=== PATIENT | female | born 1980 ===

== ENCOUNTER 2016-06-27 15:38 | Emergency (ER) | payer OTHER ==
[2016-06-27 15:49] VITALS: BP 105/71; PULSE 91; RESP 18; TEMP 98.1; O2SAT 100
[2016-06-27] MEDS ORDERED: Albuterol-Ipratrop 3 mg / 0.5 (3 ml) UD INH STA ×3 (15:52→18:00)
--- NOTE | 2016-06-27 15:58 | ED PDOC ---
HPI: CCC, URI, Sore Throat Time Seen by Provider: 06/27/16 16:00 Chief Complaint (Nursing): Cough, Cold, Congestion Chief Complaint (Provider): cough, cold, congestion History Per: Patient History/Exam Limitations: no limitations Have you had recent travel within the past 21 days to any of the following countries: [place], [place], [place] or [place]?: No Onset/Duration Of Symptoms: Days (x 2 weeks) Current Symptoms Are (Timing): Still Present Location Of Pain: Throat Associated Symptoms: Sore Throat, Cough, Nasal Congestion Additional Complaint(s): Ingris Dick is a 35 year old female, with no previous medical history, who presents to the ED with complaints of a cough accompanied by nasal congestion, sore throat and shortness of breath ongoing for the past 2 weeks. Patient noted she was seen at her local clinic where she was given singulair and antibiotics which improved the symptoms for a while but returned. Patient reports symptoms are consistent with seasonal allergies. PMD: none provided Past Medical History Reviewed: Historical Data, Nursing Documentation, Vital Signs Vital Signs: Last Vital Signs Temp 98.1 F 06/27/16 15:45 Pulse 91 H 06/27/16 15:45 Resp 18 06/27/16 15:45 BP 105/71 06/27/16 15:45 Pulse Ox 100 06/27/16 18:00 - Medical History PMH: No Chronic Diseases - Surgical History Surgical History: No Surg Hx - Family History Family History: States: Unknown Family Hx - Home Medications Home Medications: Ambulatory Orders Medication Instructions Recorded Multivit/Folic Acid/I 1 tab PO DAILY 06/16/15 [] Ibuprofen [Motrin Tab] 600 mg PO Q4H PRN #0 tab 06/19/15 Oxycodone HCl/Acetaminophen 1 each PO TID PRN #0 tablet 06/19/15 [Percocet 5-325 mg Tablet] Sennosides A and B [Senokot Tab] 17.2 mg PO HS #0 tab 06/19/15 Cephalexin [Keflex] 500 mg PO QID #28 capsule 02/23/16 Albuterol HFA [Ventolin HFA 90 2 puff IH [id number] PRN #1 inhaler 06/27/16 mcg/actuation (8 g)] Azithromycin [Zithromax] 1 tab PO DAILY #6 tab 06/27/16 Fluticasone Propionate [Flonase] 2 spr ADALBERTO DAILY #1 bottle 06/27/16 predniSONE [predniSONE Tab] 3 tab PO DAILY #12 tab 06/27/16 - Allergies Allergies/Adverse Reactions: Allergies Allergy/AdvReac Type Severity Reaction Status Date / Time No Known Allergies Allergy Verified 06/27/16 15:44 Review of Systems ROS Statement: Except As Marked, All Systems Reviewed And Found Negative ENT: Positive for: Nose Congestion, Throat Pain Respiratory: Positive for: Cough, Shortness of Breath Physical Exam - Reviewed Nursing Documentation Reviewed: Yes Vital Signs Reviewed: Yes - Physical Exam Appears: Positive for: Well, Non-toxic, No Acute Distress Skin: Positive for: Normal Color, Warm, Dry ENT: Positive for: TM Is/Are (within normal limits), Other (2 sections of erythema on uvula noted). Negative for: Pharyngeal Erythema, Tonsillar Exudate Cardiovascular/Chest: Positive for: Regular Rate, Rhythm Respiratory: Positive for: Wheezing (upper left expiratory). Negative for: Decreased Breath Sounds, Accessory Muscle Use, Respiratory Distress Neurologic/Psych: Positive for: Alert, Oriented - ECG O2 Sat by Pulse Oximetry: 100 (RA) Pulse Ox Interpretation: Normal - Progress ED Course And Treament: 16:15 Upon reevaluation patient persistently wheezing in the right lung with coughing. An additional duonebX 2 and CXR are being ordered. CXR: NO ACUTE INFILTRATE RAPID STREP NEG Medical Decision Making Medical Decision Making: Initial Impression: Cough Initial Plan: * duoneb * prednisone * rapid strep * peak flow pre/post treatment * reevaluation Scribe Attestation: Documented by Kelly Nagel, acting as a scribe for Bull Colon PA-C. Provider Scribe Attestation: All medical record entries made by the Scribe were at my direction and personally dictated by me. I have reviewed the chart and agree that the record accurately reflects my personal performance of the history, physical exam, medical decision making, and the department course for this patient. I have also personally directed, reviewed, and agree with the discharge instructions and disposition. Disposition - Clinical Impression Clinical Impression: Bronchitis - Patient ED Disposition Is Patient to be Admitted: No - Disposition Referrals: Mikey Faustin APN [Primary Care Provider] - Disposition: Routine/Home Disposition Time: 17:54 Condition: FAIR Prescriptions: Albuterol HFA [Ventolin HFA 90 mcg/actuation (8 g)] 2 puff IH [id number] PRN #1 inhaler PRN Reason: Shortness Of Breath Azithromycin [Zithromax] 1 tab PO DAILY #6 tab Fluticasone Propionate [Flonase] 2 spr ADALBERTO DAILY #1 bottle predniSONE [predniSONE Tab] 3 tab PO DAILY #12 tab Instructions: Acute Bronchitis (ED)
[2016-06-27] MEDS ORDERED: Albuterol-Ipratrop 3 mg / 0.5 (3 ml) UD ONE ×2 (16:55→17:58)
--- NOTE | 2016-06-27 17:50 | RAD ---
HISTORY: cough COMPARISON: None available. TECHNIQUE: Chest PA and lateral FINDINGS: LUNGS: No focal consolidation. Please note that chest x-ray has limited sensitivity for the detection of pulmonary masses. PLEURA: No significant pleural effusion identified. No definite pneumothorax . CARDIOVASCULAR: The cardiomediastinal silhouette appears within normal limits of size. OSSEOUS STRUCTURES: No acute osseous abnormality identified. VISUALIZED UPPER ABDOMEN: Unremarkable. OTHER FINDINGS: None. IMPRESSION: No focal consolidation, significant pleural effusion, or definite pneumothorax identified.
--- NOTE | 2016-07-01 19:17 | CARD ---
APPROVED REPORT EKG Measurement Heart [id number] <Conclusion> Normal sinus rhythm Normal ECG
== END 2016-06-27 18:32 | disposition home or self-care (01) ==
LOC: H.ER 15:38
DX: J40 Bronchitis, not specified as acute or chronic (principal); R05 Cough

== ENCOUNTER 2016-09-20 10:46 | Emergency (ER) | payer OTHER ==
[2016-09-20 10:54] VITALS: BP 118/76; TEMP 98; O2SAT 100
[2016-09-20 10:55] VITALS: BMI 23.3
[2016-09-20 11:12] VITALS: PULSE 68; RESP 18
--- NOTE | 2016-09-20 11:14 | ED PDOC ---
HPI: Female Pain Time Seen by Provider: 09/20/16 10:57 Chief Complaint (Nursing): Female Genitourinary Chief Complaint (Provider): dysuria, pelvic pain History Per: Patient Additional Complaint(s): 35-year-old female presents to emergency Department dysuria and lower abdominal pain 2 days. No associated nausea, vomiting, diarrhea or constipation. Denies any abnormal vaginal bleeding or vaginal discharge. She denies concern for STD. No associated fever or chills but patient does complain of mild pain to lower back. Past Medical History Reviewed: Historical Data, Nursing Documentation Vital Signs: Last Vital Signs Temp 98 F 09/20/16 11:10 Pulse 68 09/20/16 11:10 Resp 18 09/20/16 11:10 BP 118/76 09/20/16 11:10 Pulse Ox 100 09/20/16 11:10 - Medical History PMH: No Chronic Diseases - Surgical History Surgical History: (x 3) - Family History Family History: States: No Known Family Hx - Living Arrangements Living Arrangements: With Family - Social History Current smoker - smoking cessation education provided: No Alcohol: None Drugs: Denies - Home Medications Home Medications: Ambulatory Orders Medication Instructions Recorded Multivit/Folic Acid/I 1 tab PO DAILY 06/16/15 [] Ibuprofen [Motrin Tab] 600 mg PO Q4H PRN #0 tab 06/19/15 Oxycodone HCl/Acetaminophen 1 each PO TID PRN #0 tablet 06/19/15 [Percocet 5-325 mg Tablet] Sennosides A and B [Senokot Tab] 17.2 mg PO HS #0 tab 06/19/15 Cephalexin [Keflex] 500 mg PO QID #28 capsule 02/23/16 Albuterol HFA [Ventolin HFA 90 2 puff IH [id number] PRN #1 inhaler 06/27/16 mcg/actuation (8 g)] Azithromycin [Zithromax] 1 tab PO DAILY #6 tab 06/27/16 Fluticasone Propionate [Flonase] 2 spr ADALBERTO DAILY #1 bottle 06/27/16 predniSONE [predniSONE Tab] 3 tab PO DAILY #12 tab 06/27/16 Nitrofurantoin Macrocrystals 100 mg PO BID #14 cap 09/20/16 [Macrobid] Phenazopyridine HCl [Pyridium] 200 mg PO TID PRN #6 tablet 09/20/16 - Allergies Allergies/Adverse Reactions: Allergies Allergy/AdvReac Type Severity Reaction Status Date / Time No Known Allergies Allergy Verified 09/20/16 11:10 Review of Systems ROS Statement: Except As Marked, All Systems Reviewed And Found Negative Constitutional: Negative for: Fever, Chills Gastrointestinal: Positive for: Abdominal Pain. Negative for: Nausea, Vomiting Genitourinary Female: Positive for: Dysuria, Frequency, Pelvic Pain. Negative for: Incontinence, Hematuria, Vaginal Discharge, Vaginal Bleeding Physical Exam - Reviewed Nursing Documentation Reviewed: Yes Vital Signs Reviewed: Yes - Physical Exam Appears: Positive for: Well, Non-toxic, No Acute Distress Skin: Negative for: Rash Eye Exam: Positive for: Normal appearance Cardiovascular/Chest: Positive for: Regular Rate, Rhythm Respiratory: Positive for: Normal Breath Sounds Gastrointestinal/Abdominal: Positive for: Soft. Negative for: Tenderness, Distended, Guarding, Rebound Back: Negative for: L CVA Tenderness, R CVA Tenderness Extremity: Positive for: Normal ROM. Negative for: Pedal Edema Neurologic/Psych: Positive for: Alert, Oriented - Laboratory Results Urine POC: Negative Urine dip results: Positive for: Leukocyte Esterase (small), Blood (large). Negative for: Nitrate, Ketones, Glucose, Bilirubin, Protein - ECG O2 Sat by Pulse Oximetry: 100 Pulse Ox Interpretation: Normal Medical Decision Making Medical Decision Makin35 year old with dysuria and pelvic pain Plan: Urine test Urine dip Urine culture GC/CHL culture UTI is noted. Patient given prescriptions for Macrobid and Pyridium. She was advised to follow up with clinic in 2-3 days. Disposition - Clinical Impression Clinical Impression: Urinary tract infection - Patient ED Disposition Is Patient to be Admitted: No Counseled Patient/Family Regarding: Studies Performed, Diagnosis, Need For Followup, Rx Given - Disposition Referrals: [facility] [Outside] Disposition: Routine/Home Disposition Time: 11:32 Condition: STABLE Additional Instructions: Take rx meds as directed. Drink plenty of fluids. Follow up with clinic in 2- 3 days. Prescriptions: Nitrofurantoin Macrocrystals [Macrobid] 100 mg PO BID #14 cap Phenazopyridine HCl [Pyridium] 200 mg PO TID PRN #6 tablet PRN Reason: Bladder Spasm Instructions: Urinary Tract Infection in Women (ED) Forms: [facility] (Greenlandic) Print Language: SUDANESE
== END 2016-09-20 12:08 | disposition home or self-care (01) ==
LOC: H.ER 10:46
DX: N39.0 Urinary tract infection, site not specified (principal)